=== PATIENT | male | born 1990 | race Caucasian/White ===

== ENCOUNTER 2023-01-12 23:48 | Emergency (ER) | payer SELFPAY ==
[2023-01-13] MEDS ORDERED: Amoxicillin/Potassium Clav 875 MG TAB ONE (00:11)
[2023-01-13] MEDS ORDERED: Boostrix 0.5 ML (Tdap) VIAL (>/=7 yrs of age) ONE (00:11)
[2023-01-13] MEDS ORDERED: Ibuprofen 800 MG TAB ONE (01:18)
== END 2023-01-13 03:30 | disposition home or self-care (01) ==
LOC: NAV ERS 23:48
DX: S91.352A Open bite, left foot, initial encounter (principal); T63.001A Toxic effect of unspecified snake venom, accidental (unintentional), initial encounter; F17.290 Nicotine dependence, other tobacco product, uncomplicated; Z23 Encounter for immunization
CPT/HCPCS: 90471; 90715; 99283